=== PATIENT | male | born 1940 | race Caucasian/White ===

== ENCOUNTER → 2017-03-16 | Day surgery (SDC) | payer OTHER ==
[2017-02-18 09:00] VITALS: BMI 33.0
--- NOTE | 2017-02-18 09:38 | PAT Medication Instructions ---
"Service Date Feb 18, 2017. Current Home Medication List Alprazolam (Xanax), 0.5 MG PO TID PRN for Anxiety Aspirin (Aspirin Ec), 81 MG PO QPM Metoprolol Succinate (Metoprolol Succinate ER), 25 MG PO BID Nystatin/Triamcinolone (Mycogen || ), 1 DOSE TOP UD PRN for rash Phenazopyridine Hcl (Pyridium), 100 MG PO TID PRN for PRN Simvastatin (Zocor), 40 MG PO QPM Tamsulosin Hcl (Flomax), 0.4 MG PO QPM Warfarin Sod (Jantoven), 2.5 MG PO T,TH,SAT Warfarin Sod (Jantoven), 5 MG PO ,,.nicci Medication Instructions For Your Scheduled Surgery - Check with surgeon/armed custom protection officer for instructions: Warfarin Sod (Jantoven), 2.5 MG PO T,TH,SAT Warfarin Sod (Jantoven), 5 MG PO ,,.sun Aspirin (Aspirin Ec), 81 MG PO QPM - Hold the following medications 24 hours prior to surgery: Nystatin/Triamcinolone (Mycogen || ), 1 DOSE TOP UD PRN for rash - Take the following medications the morning of surgery with a sip of water: Phenazopyridine Hcl (Pyridium), 100 MG PO TID PRN for PRN (if needed) Metoprolol Succinate (Metoprolol Succinate ER), 25 MG PO BID Alprazolam (Xanax), 0.5 MG PO TID PRN for Anxiety (if needed) - Take the following medications as scheduled the night before surgery: Tamsulosin Hcl (Flomax), 0.4 MG PO QPM Simvastatin (Zocor), 40 MG PO QPM Phenazopyridine Hcl (Pyridium), 100 MG PO TID PRN for PRN (if needed) Metoprolol Succinate (Metoprolol Succinate ER), 25 MG PO BID Alprazolam (Xanax), 0.5 MG PO TID PRN for Anxiety (if needed) If you have any questions please call us at [phone] or [phone] or [phone]"
--- NOTE | 2017-02-18 10:05 | DIAGNOSTIC IMAGING REPORT ---
TWO VIEW CHEST CLINICAL HISTORY: Preoperative examination. FINDINGS: PA and lateral chest radiographs are compared to study dated 02/04/2015. The heart is enlarged and there is atherosclerotic calcification of the thoracic aorta. The pulmonary vascular structures noncongested. Chronic interstitial thickening is unchanged. The lungs and pleural spaces are clear. There is no pneumothorax. The skeletal structures are osteopenic. Degenerative change is noted throughout the thoracic spine. IMPRESSION: Cardiomegaly with no active disease in the chest. Electronically signed by: Enrique Multani M.D. 02/18/2017 10:04 AM Dictated Date/Time: 02/18/2017 10:03 AM
[2017-02-18 10:52] LABS: URINE APPEARANCE CLEAR (CLEAR); URINE BILIRUBIN NEG (NEG); URINE COLOR YELLOW; URINE NITRITE NEG (NEG); URINE SPECIFIC GRAVITY 1.012 (1.000-1.030); UROBILINOGEN NEG (NEG)
[2017-02-18 10:54] LABS: COMPLETE YES; EOS % 3.2 %; HEMATOCRIT 41.8 % (42-52); IG% 0.3 %; LYMPH % 28.8 %; LYMPH ABS # 1.09 K/uL (1.2-3.4); MEAN CELL VOLUME 100.2 fL (80-100); MEAN CORPUSCULAR HEMOGLOBIN 32.6 pg (25-34); MEAN CORPUSCULAR HGB CONC 32.5 g/dl (32-36); MEAN PLATELET VOLUME 9.5 fL (7.4-10.4); NEUT % 58.7 %; PLATELET COUNT 98 K/uL (130-400); PLT ESTIMATE DECREASED; RED BLOOD COUNT 4.17 M/uL (4.7-6.1); WHITE BLOOD COUNT 3.79 K/uL (4.8-10.8)
[2017-02-18 10:58] LABS: MANUAL MICROSCOPIC REQUIRED? NO; REVIEW REQ? NO
[2017-02-18 11:25] LABS: BUN/CREATININE RATIO 13.2 (10-20); CALCIUM 8.7 mg/dl (8.5-10.1); CREATININE 0.93 mg/dl (0.60-1.40); POTASSIUM 4.5 mmol/L (3.5-5.1)
[2017-02-18 11:26] LABS: PROSTATE SPECIFIC ANTIGEN 3.15 ng/ml (0.000-4.000)
[~2017-03-16] VITALS: Ht 175.3 cm; Wt 102.3 kg
[~2017-03-16] MED LIST: ACETAMINOPHEN 325 MG TAB PO PRN; ALPR-411 PO; ASPI81TA28 PO; ATROPINE SULFATE 0.1 MG/ML 5ML SYR IV PRN; CIPR-255 PO; CIPROFLOXACIN / D5W 400 MG IV SCH; ESMOLOL HCL 10 MG/ML 10 ML VIAL ONE; EpHEDrine SULFATE INJ 50 MG/ML AMP IV PRN; FENTANYL CITRATE INJ 50 MCG/1 ML 2 ML VIAL IV PRN; FENTANYL CITRATE INJ 50 MCG/1 ML 2 ML VIAL ONE; KETOROLAC TROMETHAMINE 15 MG/ML VIAL IV. STA; KETOROLAC TROMETHAMINE 30 MG/ML VIAL ONE; LACTATED RINGER'S 1000ML 1,000 ML IV SCH; LIDOCAINE HCL 2% 2 ML VIAL (20MG/ML) ONE; MIDAZOLAM HCL 1 MG/ML 2ML VIAL ONE; NYSTCRE11 TOP; ONDANSETRON INJ 2 MG/ML 2 ML VIAL IV PRN; OXYC-57 PO; OXYCODONE/ACETAMINOPHEN 5-325 TAB PO PRN; PHEN-775 PO; PHEN-939 PO; PROMETHAZINE HCL INJ 6.25 MG in SODIUM CHLORIDE 0.9% 50ML 50 ML IV PRN; PROPOFOL IV EMULSION 10 MG/ML 20 ML VIAL IV ONE; SIMV40TA2 PO; SODIUM CHLORIDE 0.9% 1000ML 1,000 ML IV SCH; TAMS0.4C38 PO; TPRSR/25 PO; WARF5TAB7 PO
[2017-03-16 07:23] VITALS: BP 141/85; PULSE 97; TEMP 36.5; O2SAT 97; Ht 175.3 cm; Wt 102.3 kg
[2017-03-16 08:03] LABS: INR 1.1 (0.9-1.1); PARTIAL THROMBOPLASTIN RATIO 1.1; PROTHROMBIN TIME (PATIENT) 11.4 SECONDS (9.0-12.0)
--- NOTE | 2017-03-16 08:14 | History & Physical Bridge Note ---
H&P Re-Evaluation Bridge Note: I have examined the patient, reviewed the History & Physical and in the interval since the performance of the History & Physical I have noted the following changes of clinical significance: No changes noted
--- NOTE | 2017-03-16 09:06 | Discharge Instructions ---
Discharge Instructions Date of Service Mar 16, 2017. Admission Reason for Admission: Urine Retention Discharge Discharge Diagnosis / Problem: Hunner's ulcer Discharge Goals Goal(s): Decrease discomfort, Improve function, Increase independence, Improve disease control, Prevent Disease Progression Activity Recommendations Activity Limitations: resume your previous activity Lifting Limitations: none Exercise/Sports Limitations: as tolerated May Resume Sexual Activity: when tolerated Shower/Bathe: no limitations Driving or Machine Use: resume 1 day after discharge . Instructions / Follow-Up Instructions / Follow-Up Please keep your previously scheduled follow-up appointment for catheter removal Discharge Diet Recommended Diet: Regular Diet Procedures Procedures Performed: Cystoscopy, Fulguration Pending Studies Studies pending at discharge: no Medical Emergencies . Who to Call and When: Medical Emergencies: If at any time you feel your situation is an emergency, please call 911 immediately. . Non-Emergent Contact Non-Emergency issues call your: Urologist Call Non-Emergent contact if: you have a fever, temperature is above 101.5, your pain is not controlled, your pain is worsening . . "Provider Documentation" section prepared by Sujit Gonzalez. . VTE Core Measure Inpt VTE Proph given/why not?: Warfarin (Coumadin) [place] Drug Monitoring Program Search Results: patient reviewed within database, no issues identified
--- NOTE | 2017-03-16 09:15 | [facility] Operative Report ---
Operative Report Operative Date Mar 16, 2017. 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 Complication(s) None Disposition Recovery Room / PACU (stable) Indications Severe, chronic voiding dysfunction Description of Procedure Edu Shelby was identified in the preoperative holding area appropriate informed consents were reviewed and completed and the patient was transported to the operating suite. Upon arrival he received appropriate preoperative antibiotics in the form of ciprofloxacin. He was placed in dorsal lithotomy position where he was sterilely prepped and draped in standard fashion. I begin the case by passing a 22 Dominican cystoscope with 30 lens per urethra. 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 I was able to navigate beyond this utilizing the scope and not having to dilate the urethra. Inspection of the prostate revealed that he is status post TURP, and his bladder neck remains patent. Full inspection of the bladder was carried out utilizing a 30 and 70 lens. This revealed a diverticulum on the left lateral bladder wall, he additionally had an ulcer near the dome of the bladder just to the right of midline. This appears most consistent with a Hunner's ulcer. There were several other scattered areas of mild erythema and irritation. There were no tumors visualized. Following my full inspection I exchanged the standard cystoscope for a resectoscope, and the cautery element which was utilized to fulgurate the base of the Hunner's ulcer. After confirming excellent hemostasis emptied the bladder withdrew the cystoscope. An 18 Dominican coud Trammell catheter was inserted without difficulty, the patient was extubated and taken to the PACU in stable condition. I attest to the content of the Intraoperative Record and any orders documented therein. Any exceptions are noted below.
--- NOTE | 2017-03-16 09:41 | Anesthesiology Progress Note ---
Anesthesia Post Op Note Date & Time Mar 16, 2017 at 09:40 Vital Signs Pain Intensity: 3 Vital Signs Past 12 Hours Date Time Temp Pulse Resp B/P (MAP) Pulse Ox O2 Delivery O2 Flow Rate FiO2 03/16/17 09:30 36.0 87 13 109/75 95 Room Air 03/16/17 09:20 83 15 124/88 99 Oxymask 6 03/16/17 09:10 92 14 122/92 99 Oxymask 10 03/16/17 09:01 36.0 94 13 133/88 97 Oxymask 10 03/16/17 07:23 36.5 97 20 141/85 (103) 97 Room Air Notes Mental Status: alert / awake / arousable, participated in evaluation Pt Amnestic to Procedure: Yes Nausea / Vomiting: adequately controlled Pain: adequately controlled Airway Patency, RR, SpO2: stable & adequate BP & HR: stable & adequate Hydration State: stable & adequate Anesthetic Complications: no major complications apparent
[2017-03-16 09:45] VITALS: BP 117/76; PULSE 79; TEMP 36.7; O2SAT 93
[2017-03-16 10:15] VITALS: BP 104/68; PULSE 79; O2SAT 96
[2017-03-16 10:45] VITALS: BP 144/83; PULSE 93; TEMP 36.5; O2SAT 98
== END | disposition home or self-care (01) ==
LOC: C.ACU 06:53
PROVIDERS: ATTEND Urology
DX: N30.10 Interstitial cystitis (chronic) without hematuria (principal); I48.91 Unspecified atrial fibrillation; Z85.46 Personal history of malignant neoplasm of prostate; Z87.891 Personal history of nicotine dependence; Z79.01 Long term (current) use of anticoagulants; Z79.82 Long term (current) use of aspirin; Z79.899 Other long term (current) drug therapy

== ENCOUNTER → 2017-04-05 | Outpatient (CLI) | payer OTHER ==
[~2017-04-05] MED LIST changes: -ACETAMINOPHEN 325 MG TAB PO PRN; -ATROPINE SULFATE 0.1 MG/ML 5ML SYR IV PRN; -CIPROFLOXACIN / D5W 400 MG IV SCH; -ESMOLOL HCL 10 MG/ML 10 ML VIAL ONE; -EpHEDrine SULFATE INJ 50 MG/ML AMP IV PRN; -FENTANYL CITRATE INJ 50 MCG/1 ML 2 ML VIAL IV PRN; -FENTANYL CITRATE INJ 50 MCG/1 ML 2 ML VIAL ONE; -KETOROLAC TROMETHAMINE 15 MG/ML VIAL IV. STA; -KETOROLAC TROMETHAMINE 30 MG/ML VIAL ONE; -LACTATED RINGER'S 1000ML 1,000 ML IV SCH; -LIDOCAINE HCL 2% 2 ML VIAL (20MG/ML) ONE; -MIDAZOLAM HCL 1 MG/ML 2ML VIAL ONE; -ONDANSETRON INJ 2 MG/ML 2 ML VIAL IV PRN; -OXYCODONE/ACETAMINOPHEN 5-325 TAB PO PRN; -PHEN-775 PO; -PROMETHAZINE HCL INJ 6.25 MG in SODIUM CHLORIDE 0.9% 50ML 50 ML IV PRN; -PROPOFOL IV EMULSION 10 MG/ML 20 ML VIAL IV ONE; -SODIUM CHLORIDE 0.9% 1000ML 1,000 ML IV SCH
--- NOTE | 2017-04-05 12:25 | DIAGNOSTIC IMAGING REPORT ---
ABDOMEN COMPLETE (US) CLINICAL HISTORY: 77 years-old Male with THROMBOCYTOPENIC DISORDER D69.6. TECHNIQUE: Multiple real time sonographic images of the abdomen were obtained assessing lehman-scale appearance. COMPARISON: CT abdomen and pelvis 01/10/2015 FINDINGS: Exam is mildly limited secondary to patient body habitus. PANCREAS: The pancreas is partially obscured by bowel gas. The visualized portions of the pancreas are normal without focal lesion or pancreatic duct dilatation. LIVER: The liver demonstrates a homogeneous parenchymal echotexture. There is no intrahepatic bile duct dilation, focal lesion, or contour nodularity. There is no ascites. GALLBLADDER: The gallbladder is fluid-filled without cholelithiasis, wall thickening, or pericholecystic fluid. Negative sonographic Pradhan's sign. The common bile duct measures 0.4 cm. RIGHT KIDNEY: The right kidney measures 9.4 x 4.9 x 5.0 cm The parenchymal echotexture and cortical thickness are normal. No nephrolithiasis or hydronephrosis. LEFT KIDNEY: The left kidney measures 9.9 x 5.7 x 5.1 cm. The parenchymal echotexture and cortical thickness are normal. No nephrolithiasis or hydronephrosis. SPLEEN: The spleen measures 11.2 cm and is normal in echotexture. No focal lesions are identified. VASCULATURE: Aorta and IVC appear unremarkable. There is hepatopedal flow within the main portal vein. IMPRESSION: Unremarkable sonographic exam of the abdomen. No evidence of splenomegaly. The above report was generated using voice recognition software. It may contain grammatical, syntax or spelling errors. Electronically signed by: Chaz Kinney M.D. 04/05/2017 12:24 PM Dictated Date/Time: 04/05/2017 12:20 PM
== END | disposition home or self-care (01) ==
LOC: C.ULTR 11:23
PROVIDERS: ATTEND Internal Medicine Hematology & Oncology
DX: D69.6 Thrombocytopenia, unspecified (principal)